=== PATIENT | female | born 1980 | race Caucasian/White ===

== ENCOUNTER 2025-03-01 12:36 | Emergency (ER) | payer MEDICAID, SELFPAY ==
[2025-03-01 12:37] VITALS: BMI 30.7
[2025-03-01 12:57] VITALS: BP 144/89; PULSE 100; RESP 16; TEMP 36.9; O2SAT 99
--- NOTE | 2025-03-01 13:09 | XR_ITS ---
Examination: Left foot 3 views Technique: AP, oblique, lateral views foot, 3 views Date and time of exam: March 01, 2025 1321 hrs. Indications: Patient kicked in the last night with injury to foot, foot pain. Findings: Acute fractures midportion proximal phalanx third digit, no signal reconstruction Impression: Acute fractures proximal phalanx first digit
--- NOTE | 2025-03-01 15:42 | PC.NURSE ---
called pt back, no answer at this time
--- NOTE | 2025-03-01 15:45 | EDNOTE_ITS ---
<Statement entered by Sherin Joaquin MD - 03/05/25 15:23> As co-signing physician, I was present and available for consult prn. I concur with the plan and care as documented by the midlevel provider. Lower Extremity Injury RME/HPI General Chief Complaint: Ankle/Foot Injury Stated Complaint: LEFT FOOT PAIN, ACCIDENTALLY KICKED WALL XLAST NIG Time Seen by Provider: 03/01/25 13:09 Arrival date/time: 03/01/25 12:36 44-year-old female presents emergency department today with complaint of left foot pain patient reports that she accidentally kicked a wall last night injuring her left foot patient is concerned for fracture Limitations: no limitations Related Data Home Medications ?Medication ?Instructions ?Recorded ?Confirmed insulin glargine 100 unit/mL (3 30 unit subcut HS 03/2411/01/21 mL) subcutaneous pen (Basaglar KwikPen U-100 Insulin) Previous Rx's ?Medication ?Instructions ?Recorded acetaminophen 325 mg tablet (Mapap 650 mg (2 x 325 mg) PO Q6HR PRN 11/03/21 (acetaminophen)) Patient rated pain of 3 #30 tabs ibuprofen 400 mg tablet 800 mg (2 x 400 mg) PO Q8HR PRN 11/03/21 Pain Scale 4-6 (Moderate #30 tabs labetalol 100 mg tablet 100 mg PO BID #30 tabs 11/03 metronidazole 500 mg tablet 500 mg PO TID #21 tabs Allergies Allergy/AdvReac Type Severity Reaction Status Date / Time No Known Allergies Allergy Verified 03/01/25 12:39 Review of Systems Review of Systems Systems Reviewed: All systems reviewed, normal except as documented Constitutional Constitutional: Reports system reviewed and no additional complaints, except as documented, Denies fever(s) and Denies headache(s) Eyes Eyes: Reports system reviewed and no additional complaints, except as documented and Denies blurry vision ENT Ears, Nose, Mouth, and Throat: Reports system reviewed and no additional complaints, except as documented, Denies headache(s), Denies nasal congestion and Denies nasal discharge Cardiovascular Cardiovascular: Reports system reviewed and no additional complaints, except as documented, Denies chest pain and Denies dyspnea Respiratory Respiratory: Reports system reviewed and no additional complaints, except as documented, Denies chest congestion, Denies cough and Denies dyspnea Gastrointestinal Gastrointestinal: Reports system reviewed and no additional complaints, except as documented and Denies abdominal pain Musculoskeletal Musculoskeletal: Reports system reviewed and no additional complaints, except as documented, Reports arthralgias, Denies deformity, Reports joint swelling, Denies numbness, Reports stiffness and Denies tingling Integumentary/Breasts Skin/Breast: Reports system reviewed and no additional complaints, except as documented and Denies rash Neurologic Neurologic: Reports system reviewed and no additional complaints, except as documented, Reports as per HPI, Denies headache(s), Denies numbness and Denies tingling Past Medical History Past Medical History NEUROLOGIC: Negative Neurological Disorders or Seizures CARDIAC: Positive Cardiac Disorders and Hypertension (Gestational hypertension; taking labetalol 100mg BID); Negative Myocardial Infarction, Cardiac Arrhythmia, Atrial Fibrillation, Angina, Heart Murmur, Coronary Artery Disease, Atherosclerotic Heart Disease, Peripheral Vascular Disease, Hypercholesterolemia, Aneurysm, Congestive Heart Failure, Aman enital Heart Disease, Valvular Heart Disease, Rheumatic Fever, Cardiomyopathy, Edema, Pericarditis, Cellulitis, Deep Vein Thrombosis, Hypotension or Varicose Veins RESPIRATORY: Negative Chronic Obstructive Pulmonary Disease (COPD), Asthma, Bronchitis or Cystic Fibrosis GASTROINTESTINAL: Positive Gastrointestinal Disorders, Hiatal Hernia and Gastroesophageal Reflux Disease; Negative Hepatitis GENITOURINARY: Negative Genitourinary Disorders or Renal Disease REPRODUCTIVE: Negative Breast Cancer, Endometriosis, Genital Herpes, Gonorrhea, Pelvic Inflammatory Disease, Previous Pregnancies, Syphilis or Uterine Prolapse MUSCULOSKELETAL: Positive Musculoskeletal Disorders, Carpal Tunnel Syndrome and Fibromyalgia ENT: Negative Cataracts, Glaucoma, Blind, Retinal Detachment, Macular Degeneration, Ear Infection, Deafness or Eye Prosthesis ENDOCRINE: Positive Endocrine Disorders and Diabetes Mellitus Type 1 (Diagnosed at 21yrs old); Negative Diabetes Mellitus Type 2 HEMATOLOGIC: Negative Blood Disorders PSYCHO/SOCIAL: Positive Bipolar Disorder, Depression and Anxiety OTHER HISTORY: Negative Hospitalization, Autoimmune Disease, Falls, Blood Transfusions, Blood Transfusion Reaction, Anesthesia Reactions, Organ Transplant, MRSA, VRSA, Vancomycin-Resistant Enterococci, Clostridium Difficile, Cancer or Breast Cancer Family History FAMILY HISTORY: Positive Family Gastrointestinal Problems and Family Cancer; Negative Family Psychiatric Problems, Family Respiratory Disorders, Family Cardiac Disorders, Family Surgery or Family Anesthesia Reaction Surgical History SURGICAL: Negative Cardiac Surgery, Pacemaker, Endocrine Surgery, Ear Surgery, Abdominal Surgery, Nephrectomy, Neurologic Surgery, Section or Organ Transplant Social History SMOKING STATUS: Never smoker SECOND HAND EXPOSURE: Yes ED Exam General Limitations: Present no limitations General appearance: Present alert and in no apparent distress Head Head exam: Present atraumatic, normocephalic and normal inspection Eye Eye exam: Present normal appearance, PERRL and EOMI ENT ENT exam: Present normal exam, normal oropharynx and mucous membranes moist Neck Neck exam: Present normal inspection, full ROM and trachea midline Chest Chest inspection: Present normal inspection and symmetric chest wall rise Respiratory Respiratory exam: Present normal lung sounds bilaterally Cardiovascular Cardiovascular exam: Present regular rate, normal rhythm and normal heart sounds Abdominal Exam Abdominal exam: Present soft and normal bowel sounds Extremities Exam Extremities exam: Present normal inspection and full ROM Back Exam Back exam: Present normal inspection and full ROM Neurological Exam Neurological exam: Present alert, oriented X3, CN II-XII intact, normal gait and reflexes normal; Absent motor sensory deficit Psychiatric Psychiatric exam: Present normal affect and normal mood Skin Skin exam: Present warm, dry and other (Bruising, swelling foot) Course Quality Measures none Orders Category Date Time Status XR foot comp LT min 3V Stat Exams 03/01/25 13:09 Completed Vital Signs Vital signs: Vital Signs Temperature 98.4 F 03/01/25 12:57 Pulse Rate 100 03/01/25 12:57 Respiratory Rate 16 03/01/25 12:57 Blood Pressure 144/89 H 03/01/25 12:57 Pulse Oximetry (%) 99 03/01/25 12:57 Oxygen Delivery Method Room Air 03/01/25 12:57 O2 saturation 99% room air within normal limits Extremity Injury, Lower MDM Narrative MDM Narrative:: 44-year-old female presents emergency department today with complaint of left foot pain patient reports that she accidentally kicked a wall last night injuring her left foot patient is concerned for fracture On exam patient well-appearing patient's not appear toxic patient can walk with a steady gait the patient does have bruising and swelling to the left foot Imaging obtained consistent with fracture I was going to place the patient in crutches and a splint but patient appears to have eloped from the ER I contacted the patient via phone patient did leave the ER prior to final disposition instructed return for splinting crutches Patient data External records reviewed:: [facility] previous records Clinical information provided by:: patient Social determinants that could affect healthcare access:: none Patient has the following chronic illnesses:: See history How is presenting disease/condition affected by chronic disease/condition?: uneffected by Evaluation data The following diagnostics were reviewed and interpreted by me:: radiology exam(s) Lab and/or radiology exams considered but not ordered:: Radiology obtained Interpretation Summary: Reviewed by me Medications / Prescriptions Medications or Prescriptions considered but not ordered:: Given no meds Medication administrations:: No meds Consultations Consultation(s) initiated? (list below): No Diagnosis Extremity Injury, Lower Differential Diagnosis: other (Foot sprain, foot fracture) Most likely diagnosis given after review of the tests above:: Foot fracture Admission Indicated Admission indicated?: not indicated Admission Request Was there a request for admission?: No Disposition Plan Disposition Plan: Discharge Discharge Attestation Discharge Attestation: The patient and all family members were given an opportunity to ask questions and understood the discharge instructions. Discharge instructions specifically effects, indications for sooner follow up or return to the emergency department, and the expected course of current diagnosis. Patient condition: Stable Discharge Plan Plan Patient Disposition: Elopement Disposition Comment: Stable Prescriptions/Referrals Prescriptions/Med Rec: No Action Rosa Sapp U-100 Insulin 100 unit/mL (3 mL) Insulin Pen 30 unit SUB-Q HS acetaminophen [Mapap (acetaminophen)] 325 mg Tablet 650 mg PO Q6HR PRN (Reason: Patient rated pain of 3) Qty: 30 0RF ibuprofen 400 mg Tablet 800 mg PO Q8HR PRN (Reason: Pain Scale 4-6 (Moderate) Qty: 30 0RF labetalol 100 mg Tablet 100 mg PO BID Qty: 30 0RF metronidazole 500 mg tablet 500 mg PO TID Qty: 21 0RF Referrals: Jennifer Siddiqi PA-C [Primary Care Provider] - In 1 week Problem List Clinical Impression: Fracture of toe of left foot Patient/Caregiver Discharge Instructions Education Materials: ED Fracture, Foot Additional Instructions: Please follow up with your primary care doctor in the next 24-48hrs for any worsening symptoms return here immediately Print Language: [place] JUSTYN/RISHI Supervising Physician JUSTYN/RISHI Supervising Physician: Dr. Joaquin
== END 2025-03-01 15:50 | disposition left against medical advice (07) ==
PROVIDERS: Emergency Provider Emergency Medicine; PCP Physician Assistant Medical
DX: S92.412A Displaced fracture of proximal phalanx of left great toe, initial encounter for closed fracture (principal); I10 Essential (primary) hypertension; Z53.29 Procedure and treatment not carried out because of patient's decision for other reasons; Z79.899 Other long term (current) drug therapy; W22.09XA Striking against other stationary object, initial encounter
CPT/HCPCS: 73630; 99283

== ENCOUNTER 2025-04-01 22:28 | Emergency (ER) | payer MEDICAID, SELFPAY ==
[2025-04-01 22:29] VITALS: BMI 30.7
[2025-04-01 22:55] VITALS: BP 124/80; PULSE 85; RESP 18; TEMP 37.3; O2SAT 96
--- NOTE | 2025-04-01 23:03 | EKG_ITS ---
[facility] Test Date: 2025-04-01 Pat Name: UNIQUE LA Department: Room: - Gender: Female Ebd Teacher: : 1980 Requested By: Alan Flood Order Number: [id number] Reading MD: Alan Flood Measurements Intervals [place] Rate: 107 P: 55 SC: 151 QRS: 39 QRSD: 86 T: 43 QT: 370 QTc: 496 Interpretive Statements SINUS TACHYCARDIA WITH FREQUENT SUPRAVENTRICULAR PREMATURE COMPLEXES ABNORMAL RHYTHM ECG No previous ECG available for comparison /[id number]/[email or web address]/[id number].pdf
--- NOTE | 2025-04-01 23:04 | XR_ITS ---
Examination: PA and lateral chest 2 views TECHNIQUE: Upright PA and lateral chest 2 views Examination timed [facility] Apr 02 2025 12 midnight Comparison February 01, 2018 INDICATIONS: Chest pain and weakness beginning one week ago FINDINGS: Normal heart size The lungs are clear. The osseous structures are intact IMPRESSION: No active disease
--- NOTE | 2025-04-01 23:07 | PD.EDRME ---
Rapid Medical Screening Exam RME Arrival date/time: 04/01/25 22:28 44 yo f present to Ed for c/o of chest pain/weakness for 1 week I have greeted and performed a focused initial assessment of this patient. A comprehensive ED assessment and evaluation of the patient, analysis of all test results, and completion of the medical decision making process will be conducted by additional ED providers. Chief Complaint: Chest Pain Time Seen by Provider: 04/01/25 22:35 Vital signs: Vital Signs Temperature 99.1 F 04/01/25 22:55 Pulse Rate 85 04/01/25 22:55 Respiratory Rate 18 04/01/25 22:55 Blood Pressure 124/80 04/01/25 22:55 Pulse Oximetry (%) 96 04/01/25 22:55 Oxygen Delivery Method Room Air 04/01/25 22:55
[2025-04-01 23:33] LABS: Basophils % (Auto) 1 % (0-2.5); Eosinophils % (Auto) 0 % (0-10); Hematocrit 32.2 % (36.0-46.0); Hemoglobin 11.4 g/dL (12.0-16.0); Immature Granulocytes % (Auto) 1 % (0-0); Immature Granulocytes Auto 0.06 Thou/mm3 (0.00-0.00); Lymphocytes # (Auto) 1.3 Thou/mm3 (1.0-4.8); Lymphocytes % (Auto) 18 % (10-50); Mean Corpuscular HGB Conc 35.4 g/dl (31.0-37.0); Mean Corpuscular Hemoglobin 30.8 pg (25.0-35.0); Mean Corpuscular Volume 87 fL (80-100); Monocytes # (Auto) 0.9 Thou/mm3 (0.0-0.8); Monocytes % (Auto) 13 % (0-12); Neutrophils # (Auto) 4.7 Thou/mm3 (1.8-7.7); Neutrophils % (Auto) 67 % (37-80); Nucleated Red Blood Cell % 0 /100 WBC (0); Platelet Count 186 Thou/mm3 (140-440); RDW Standard Deviation 41.7 fL (36.4-46.3)
[2025-04-02 00:02] LABS: Alanine Aminotransferase 9 U/L (10-49); Albumin, Serum 4.3 gm/dL (3.5-5.0); Albumin/Globulin Ratio 1.4 (1.2-2.2); Alkaline Phosphatase 58 U/L (46-116); Anion Gap 9 (7-16); Aspartate Amino Transferase 12 U/L (0-34); BUN/Creatinine Ratio 12 Ratio (12-20); Bilirubin,Total 0.2 mg/dL (0.3-1.2); Blood Urea Nitrogen 13 mg/dL (9-23); Calcium 8.3 mg/dL (8.3-10.6); Calcium (Corrected) 8.3 mg/dL (8.5-10.1); Carbon Dioxide 24.5 mMol/L (20.0-31.0); Chloride 101 mMol/L (98-107); Creatinine (Component) 1.1 mg/dL (0.6-1.3); Estimated Creatinine Clearance 73.7 mL/min (>60); Globulin 3.1 gm/dL (2.3-3.5); Glucose 171 mg/dL (74-106); HCG,Qualitative Serum Negative; Lipase 42 U/L (12-53); Magnesium 1.6 mg/dL (1.6-2.6); Osmolality,Calculated 272 (275-295); Potassium 3.8 mMol/L (3.4-5.1); Sodium 134 mMol/L (136-145); Total Protein 7.4 gm/dL (5.7-8.2); Troponin I < 0.002 ng/mL (0.0-0.045); eGFR > 60 See Note
--- NOTE | 2025-04-02 02:30 | PD.EDCHEST ---
ED Chest Pain RME/HPI General Chief Complaint: Chest Pain Stated Complaint: CHEST PAIN Time Seen by Provider: 04/01/25 22:35 Arrival date/time: 04/01/25 22:28 44 year old female present to emergency room with c/o of intermittent chest pain, weakness for 1 week. LOCATION: chest SEVERITY: Symptoms are described as being severe with limitations on activities of daily living CONTEXT: The patient is unable to identify any inciting events. DURATION/TIMING: The symptoms started approximately 7 days ASSOCIATED SYMPTOMS: The patient is unable to identify any other associated symptoms. MODIFYING FACTORS: The patient is unable to identify any alleviating or aggravating symptoms. PERTINENT ROS: no fevers, no cough, no pleuritic pain, no ripping or tearing sensations, denies any lower extremity edema and no unilateral swelling, no shortness of breath no nausea,vomiting, diarrhea, no headache no rash no loc/syncope episode no abd/back pain no dsyuria,urgency,frequency REVIEW OF SYSTEMS: See History of Present Illness - with the exception of those mentioned in the history of present illness, all other systems reviewed and reported as negative GENERAL: In general the patient is awake, interactive, in an emergency department gurney. HEAD/EYES/EARS/NOSE/THROAT: normo-cephalic, atraumatic, mucus membranes are moist, anicteric, palpebral conjunctiva is pink, trachea is midline. CARDIOVASCULAR: regular rate and regular rhythm, no murmurs, heart sounds are not distant, strong pulses in all four extremities that are equal and symmetric bilateral upper and lower extremities, normal capillary refill. CHEST/PULMONARY: normal chest rise and fall, good air movement, clear to auscultation bilaterally, normal inspiratory to expiratory ratios without evidence of respiratory distress. NECK: No midline/Paraspinal tenderness, no step off ROM/Strenght intact No Kernig and bruzinski sign. No trauma ABDOMEN: soft, not tender, no masses appreciated BACK: normal range of motion without pain. NEUROLOGICAL: cranio-facial features are symmetric, moves all four extremities equally without obvious limitations or weakness. EXTREMITY: no tenderness to palpation over the long bones or large joints of the bilateral upper and lower extremities, no joint swelling, no joint erythema, no signs of trauma, no unilateral leg swelling and no peripheral edema. SKIN: warm, dry, well-perfused, no jaundice, no rash, no telangiectasias or petechia. PSYCH: calm, cooperative, no evidence of psychosis or agitation RME / HPI RME / HPI narrative: 04/01/25 22:28 44 yo f present to Ed for c/o of chest pain/weakness for 1 week I have greeted and performed a focused initial assessment of this patient. A comprehensive ED assessment and evaluation of the patient, analysis of all test results, and completion of the medical decision making process will be conducted by additional ED providers. Related Data Home Medications ?Medication ?Instructions ?Recorded ?Confirmed insulin glargine 100 unit/mL (3 30 unit subcut HS 04/20/18 11/01/21 mL) subcutaneous pen (Basaglar KwikPen U-100 Insulin) Previous Rx's ?Medication ?Instructions ?Recorded acetaminophen 325 mg tablet (Mapap 650 mg (2 x 325 mg) PO Q6HR PRN 11/03/21 (acetaminophen)) Patient rated pain of 3 #30 tabs ibuprofen 400 mg tablet 800 mg (2 x 400 mg) PO Q8HR PRN 11/03/21 Pain Scale 4-6 (Moderate #30 tabs labetalol 100 mg tablet 100 mg PO BID #30 tabs 11/03/21 metronidazole 500 mg tablet 500 mg PO TID #21 tabs 08/16/23 Allergies Allergy/AdvReac Type Severity Reaction Status Date / Time No Known Allergies Allergy Verified 04/01/25 22:30 Course Course Course Narrative: Given History, Exam, and Workup I have low suspicion for ACS, Pneumothorax, Bacterial Pneumonia, Pulmonary Embolus, Tamponade, Aortic Dissection or other emergent problem as a cause for this presentation.? Last Stress Test:? never Last Heart Catheterization:? never HEART Score: 1-2 Quality Measures none Orders Category Date Time Status EKG (ED ONLY) *Do not use* NOW Care 04/01/25 23:03 Completed EKG (ED Only) Stat Exams 04/01/25 23:03 Draft XR chest 2V Stat Exams 04/01/25 23:04 Taken CBC Stat Lab 04/01/25 23:27 Completed CMP [Comprehensive Metabolic Panel] Stat Lab 04/01/25 23:27 Completed HCG,Qualitative Serum Stat Lab 04/01/25 23:27 Completed Lipase Stat Lab 04/01/25 23:27 Completed Mag [Magnesium] Stat Lab 04/01/25 23:27 Completed Troponin I Stat Lab 04/01/25 23:27 Completed Vital Signs Vital signs: Vital Signs Temperature 99.1 F 04/01/25 22:55 Pulse Rate 85 04/01/25 22:55 Respiratory Rate 18 04/01/25 22:55 Blood Pressure 124/80 04/01/25 22:55 Pulse Oximetry (%) 96 04/01/25 22:55 Oxygen Delivery Method Room Air 04/01/25 22:55 Procedures -ED EKG Interpretation #1: Date of EK04/01/25 Rate: 107 Interpretation: Reviewed by me EKG Impression: No ischemic changes, Sinus tachycardia and Normal QRS Chest Pain Patient data External records reviewed:: [facility] previous records Clinical information provided by:: patient Social determinants that could affect healthcare access:: none Patient has the following chronic illnesses:: dm How is presenting disease/condition affected by chronic disease/condition?: uneffected by Evaluation data The following diagnostics were reviewed and interpreted by me:: lab results, radiology exam(s) and EKG tracing(s) Lab and/or radiology exams considered but not ordered:: na Interpretation Summary: xray: nad wet read trop negative cbc/cmp wnl Medications / Prescriptions Medications or Prescriptions considered but not ordered:: n/a Medication administrations:: n/a Consultations Consultation(s) initiated? (list below): No Diagnosis Most likely diagnosis given after review of the tests above:: chest pain Admission Indicated Admission indicated?: not indicated Admission Request Was there a request for admission?: No Disposition Plan Disposition Plan: Discharge Discharge Attestation Discharge Attestation: The patient and all family members were given an opportunity to ask questions and understood the discharge instructions. Discharge instructions specifically effects, indications for sooner follow up or return to the emergency department, and the expected course of current diagnosis. Patient condition: Stable Discharge Plan Plan Patient Disposition: HOME (Self Care) Health Concerns: Follow with PMD as directed Take tylenol or motrin as need Return to ED if sx worsen Prescriptions/Referrals Prescriptions/Med Rec: No Action Basaglmitch RichardsikPen U-100 Insulin 100 unit/mL (3 mL) Insulin Pen 30 unit SUB-Q HS acetaminophen [Mapap (acetaminophen)] 325 mg Tablet 650 mg PO Q6HR PRN (Reason: Patient rated pain of 3) Qty: 30 0RF ibuprofen 400 mg Tablet 800 mg PO Q8HR PRN (Reason: Pain Scale 4-6 (Moderate) Qty: 30 0RF labetalol 100 mg Tablet 100 mg PO BID Qty: 30 0RF metronidazole 500 mg tablet 500 mg PO TID Qty: 21 0RF Referrals: Jennifer Siddiqi PA-C [Primary Care Provider] - In 1 week Problem List Clinical Impression: Chest pain Patient/Caregiver Discharge Instructions Education Materials: ED Chest Pain, Uncertain Cause Print Language: [place] Stand Alone Forms: [employer] Award Info., Patient Portal Info Letter
[2025-04-02 03:32] VITALS: BP 137/62; PULSE 68; RESP 18; TEMP 37.1; O2SAT 99
== END 2025-04-02 03:34 | disposition home or self-care (01) ==
PROVIDERS: Physician Assistant; Emergency Provider Emergency Medicine; PCP Physician Assistant Medical
DX: R07.9 Chest pain, unspecified (principal); R53.1 Weakness; R00.0 Tachycardia, unspecified; I49.1 Atrial premature depolarization
CPT/HCPCS: 36415; 71046; 80053; 83690; 83735; 84484; 84703; 85025; 93005; 99283